=== PATIENT | male | born 1980 | race Caucasian/White ===

== ENCOUNTER 2024-06-09 07:06 | Day surgery (SDC) | payer OTHER, SELFPAY ==
[2024-06-04 11:12] VITALS: BMI 40.6
[2024-06-09] VITALS (8 sets, daily range): BP systolic 126–160; BP diastolic 71–99; PULSE 79–92; RESP 16–18; TEMP 36.1–36.4; O2SAT 92–97; BMI 40.8
[2024-06-09] MEDS: Lactated Ringers 1,000 ML 100 ML IVCONT (07:28)
--- NOTE | 2024-06-09 08:45 | P.CONAN_ITS ---
Documented by User: Megan Amador NP 06/04/24 14:39 HPI - Anesthesia Eval Consult details Narrative: 44yo M for Bilateral Lateral Rectus Eye Muscle Recession/Resection ETOH abuse [facility] Past Medical History Medical History (Updated 06/04/24 @ 11:10 by Ute Dixon RN) History of headache HTN (hypertension) HLD (hyperlipidemia) Fatty liver Alcoholism Allergic rhinitis Gout Surgical History Surgical History (Updated 06/04/24 @ 11:10 by Ute Dixon RN) Hx of cholecystectomy Hx of prostate biopsy Social History Social History Patient Tobacco Use Status: Never used Tobacco Have you been hit, kicked, punched, or otherwise hurt by someone within the past year? If so, by whom?: No Are you DNR?: No Advance Directives: No Advance Directives Information Provided: Yes Advance Directives on File: No Nutrition Risks: No Nutritional Risk Meds Allergies Allergy/AdvReac Type Severity Reaction Status Date / Time No Known Allergies Allergy Verified 06/04/24 11:10 Home Medications ?Medication ?Instructions ?Recorded ?Confirmed ?Last Taken ?Type atorvastatin 40 mg tablet 60 mg PO DAILY 06/04/24 06/04/24 Unknown History multivitamin 1 tab PO DAILY 06/04/24 06/04/24 Unknown History Exam Height,Weight and Vital Signs: Height 5 ft 7 in Weight 117.48 kg Assessment and Plan Assessment Anesthesia Assessment: Chart Reviewed Documented by User: Monika Burns DO 06/09/24 08:47 [facility] Past Medical History Medical History (Updated 06/04/24 @ 11:10 by Ute Dixon RN) History of headache HTN (hypertension) HLD (hyperlipidemia) Fatty liver Alcoholism Allergic rhinitis Gout Family History Family history of problems with anesthesia: No Surgical History Surgical History (Updated 06/04/24 @ 11:10 by Ute Dixon RN) Hx of cholecystectomy Hx of prostate biopsy History of Problems with Anesthesia: No Social History Social History Patient Tobacco Use Status: Never used Tobacco Have you been hit, kicked, punched, or otherwise hurt by someone within the past year? If so, by whom?: No Are you DNR?: No Advance Directives: No Advance Directives Information Provided: Yes Advance Directives on File: No Nutrition Risks: No Nutritional Risk Meds Allergies Allergy/AdvReac Type Severity Reaction Status Date / Time No Known Allergies Allergy Verified 06/04/24 11:10 Home Medications ?Medication ?Instructions ?Recorded ?Confirmed ?Last Taken ?Type atorvastatin 40 mg tablet 60 mg PO DAILY 06/04/24 06/04/24 Unknown History multivitamin 1 tab PO DAILY 06/04/24 06/04/24 Unknown History Exam Exam Date and Time: 06/09/24 0845 Height,Weight and Vital Signs: Height 5 ft 7 in Weight 117.48 kg Vital Signs Temperature 97 F 06/09/24 07:13 Pulse Rate 84 06/09/24 07:13 Respiratory Rate 18 06/09/24 07:13 Blood Pressure 160/99 H 06/09/24 07:13 Pulse Oximetry 97 06/09/24 07:13 Oxygen Delivery Method Room Air 06/09/24 07:13 Temperature 97 F 06/09/24 07:13 Pulse Rate 84 06/09/24 07:13 Respiratory Rate 18 06/09/24 07:13 Blood Pressure 160/99 H 06/09/24 07:13 Pulse Oximetry 97 06/09/24 07:13 Oxygen Delivery Method Room Air 06/09/24 07:13 Airway Mallampati Class: II TM Dist: >3cm Neck ROM: Full Loose/Missing/Broken Teeth: No (patient denies any loose or broken teeth) Heart: S1S2 Lungs: CTAB Assessment and Plan Assessment Anesthesia Assessment: Anesthesia Plan Discussed and Chart Reviewed Final Anesthetic Review Family History of Problems with Anesthesia: No History of Problems with Anesthesia: No NPO: Yes ASA Class: II Final Preanesthetic Review: No Changes in Pt Med Stat, Meds/Allgs Chart Reviewed, Consent Obtained/Reviewed and Anes Risks/Benef Reviewed Patient Risk: Low Procedure Risk: Low Anesthetic Plan Anesthetic Plan: GA and Agree w/ Assess. and Plan Disposition: Standard PACU
[2024-06-09] MEDS: oxyCODONE HCl Immed Release 5 MG TABLET PO (10:24)
[2024-06-09] MEDS: Acetaminophen 325 MG TABLET 650 MG PO (10:24)
--- NOTE | 2024-06-09 12:55 | P.OPHTHAL_ITS ---
Ophthalmology Operative Note Date of Service: 06/09/24 Narrative: Diagnosis exotropia. Procedure bilateral lateral rectus recessions of [address] Richter. Anesthesia general. Complications none. The patient was brought to the operative room placed under general anesthesia. The eyes were prepped and draped in the usual sterile ophthalmic fashion. A lid speculum was placed in the right eye and incisions made at bare sclera in the inferotemporal fornix. The lateral rectus muscle was hooked and secured with a double-armed Vicryl suture. The muscle was disinserted the globe and reattached to a position 7 mm behind the original insertion. Conjunctiva was closed with int errupted Vicryl sutures. An identical procedure was then performed on the left eye. The patient was then awoken from general anesthesia and discharged to postoperative recovery in good condition.
== END 2024-06-09 11:29 | disposition home or self-care (01) ==
PROVIDERS: PCP Internal Medicine; Visit Provider Ophthalmology
PROC: (CPT 67311; principal; 2024-06-09 08:30)
DX: H50.15 Alternating exotropia (principal); M10.9 Gout, unspecified; I10 Essential (primary) hypertension; E78.5 Hyperlipidemia, unspecified; J30.9 Allergic rhinitis, unspecified; F10.20 Alcohol dependence, uncomplicated; Z79.899 Other long term (current) drug therapy; Z90.49 Acquired absence of other specified parts of digestive tract
CPT/HCPCS: 67311; J1100; J1596; J1885; J2003; J2250; J2405; J2704; J3010